=== PATIENT | female | born 1980 | race Caucasian/White ===

== ENCOUNTER → 2018-02-18 | Outpatient (CLI) | payer OTHER | LOC: MC.RAD 13:45 | DX: N60.11 Diffuse cystic mastopathy of right breast (principal) ==

== ENCOUNTER → 2020-06-07 | Outpatient (CLI) | payer BC | LOC: COL.RAD 09:30 | DX: S02.85XA Fracture of orbit, unspecified, initial encounter for closed fracture (principal) ==

== ENCOUNTER 2020-07-09 11:08 | Emergency (ER) | payer BC ==
[~2020-07-09] VITALS: Ht 167.6 cm; Wt 75.0 kg
[2020-07-09 11:12] VITALS: BP 155/101; TEMP 98.6
[2020-07-09] MEDS ORDERED: CELEXA 20MG20 MG/TAB PO (11:24)
[2020-07-09] MEDS ORDERED: TOPROL XL 25MG25 MG (11:24)
[2020-07-09] MEDS ORDERED: CHANTIX 1MG1 MG PO (11:24)
[2020-07-09 12:17] VITALS: PULSE 74
== END 2020-07-09 12:15 | disposition home or self-care (01) ==
LOC: COL.ER 11:08
DX: S92.322A Displaced fracture of second metatarsal bone, left foot, initial encounter for closed fracture (principal); I10 Essential (primary) hypertension; F32.9 Major depressive disorder, single episode, unspecified; F17.210 Nicotine dependence, cigarettes, uncomplicated; X50.0XXA Overexertion from strenuous movement or load, initial encounter; Y93.39 Activity, other involving climbing, rappelling and jumping off; Y92.830 Public park as the place of occurrence of the external cause

== ENCOUNTER 2021-03-05 11:06 | Emergency (ER) | payer BC ==
[~2021-03-05] VITALS: Ht 167.6 cm; Wt 73.2 kg
[~2021-03-05 11:06] MED LIST: CELEXA 20MG20 MG/TAB PO; CHANTIX 1MG1 MG PO; TOPROL XL 25MG25 MG
[2021-03-05 11:12] VITALS: TEMP 98.2
[2021-03-05 11:27] LABS: BASO # 0.1 (0.0-0.2); BASO % 0.8 % (0.0-2.0); EOS # 0.1 (0.0-0.7); EOS % 0.5 % (0-4.0); GRAN # 9.9 (1.4-6.5); GRAN % 68.3 % (42.2-75.2); HEMATOCRIT 49.6 % (37.0-47.0); HEMOGLOBIN 17.4 g/dl (12.5-16.0); LYMPH # 3.5 (1.2-3.4); LYMPH % 23.9 % (20.0-51.0); MEAN CELL VOLUME 93 fl (80.0-100.0); MEAN CORPUSCULAR HEMOGLOBIN 33 pg (27.0-31.0); MEAN CORPUSCULAR HGB CONC 35 g/dl (33.0-37.0); MONO # 0.9 (0.1-0.6); MONO % 6.1 % (1.7-9.3); PLATELET COUNT 397 K/mm3 (130-400); RED BLOOD COUNT 5.36 M/mm3 (4.10-5.30); REDCELL DISTRIBUTION WIDTH-CV 12.4 % (11.5-14.5)
[2021-03-05 11:41] LABS: ALANINE AMINOTRANSFERASE 31 U/L (4-34); ALBUMIN 5.1 gm/dL (3.5-5.0); ALKALINE PHOSPHATASE 71 U/L (50-136); ANION GAP 13 mmol/L (7-16); AST,SGOT 54 U/L (15-37); BILIRUBIN,TOTAL 0.6 mg/dL (0.0-1.0); BLOOD UREA NITROGEN 5 mg/dL (7-17); CALCIUM 10.5 mg/dL (8.4-10.2); CARBON DIOXIDE 25 mmol/L (22-30); CHLORIDE 96 mmol/L (98-107); CREATININE, serum 0.51 (0.52-1.25); GLUCOSE 79 mg/dL (74-106); POTASSIUM 3.7 mmol/L (3.4-5.0); SODIUM 134 mmol/L (137-145); TOTAL PROTEIN 9.1 gm/dL (6.4-8.2)
[2021-03-05 12:07] LABS: TROPONIN-I < 0.012 ng/mL (0.000-0.035)
[2021-03-05 15:36] VITALS: BP 135/93; PULSE 100
== END 2021-03-05 15:36 | disposition home or self-care (01) ==
LOC: COL.ER 11:06
PROVIDERS: Emergency Medicine
DX: R07.9 Chest pain, unspecified (principal); F17.210 Nicotine dependence, cigarettes, uncomplicated

== ENCOUNTER 2021-10-10 11:48 | Outpatient (CLI) | payer BC ==
[~2021-10-10] VITALS: Ht 167.6 cm; Wt 65.0 kg
[2021-10-10] VITALS (7 sets, daily range): BP systolic 129–144; BP diastolic 90–97; PULSE 82–88; TEMP 98.4
[~2021-10-10 11:48] MED LIST changes: +ATARAX 25MG25 MG/TAB PO; +TOPROL XL 25MG25 MG PO; +ZOLOFT 100MG100 MG PO
--- NOTE | 2021-10-10 13:30 | NUR ---
Pt tolerated infusion and 1 hr obs period without issue. INT DC'd with catheter intact. Pt escorted out to ED entrance with steady gait.
--- NOTE | 2021-10-10 13:30 | NUR ---
Pt tolerated infusion and 1 hr obs period without issue. INT DC'd with catheter intact. Pt escorted out to ED entrance with steady gait.
== END 2021-10-10 13:30 | disposition home or self-care (01) ==
LOC: EUO 11:48
DX: U07.1 COVID-19 (principal); I51.9 Heart disease, unspecified
CPT/HCPCS: M0245

== ENCOUNTER → 2023-02-18 | Outpatient (CLI) | payer BC | LOC: MC.RAD 08:26 | DX: R92.1 Mammographic calcification found on diagnostic imaging of breast (principal) ==